=== PATIENT | female | born 1945 | race Caucasian/White ===

== ENCOUNTER 2016-09-28 18:00 | Inpatient (IN) | payer MEDICARE, MEDICAID ==
[~2016-09-28] VITALS: Ht 162.6 cm; Wt 76.4 kg
[2016-09-28 18:32] LABS: BASOPHILS % (AUTO) 0.2 % (0.0-2.0); HEMATOCRIT 28.5 % (36-46); LYMPHOCYTES % (AUTO) 6.5 % (22.0-44.0); MEAN CORPUSCULAR HGB CONC 31.4 G/dL (31.0-37.0); MEAN CORPUSCULAR VOLUME 99 fL (80-100); MONOCYTES % (AUTO) 6.8 % (2.0-9.0); NEUTROPHILS # (AUTO) 11.7 K/uL (1.8-7.7); NEUTROPHILS % (AUTO) 77.5 % (40.0-70.0); PLATELET COUNT (AUTO) 663 K/uL (150-450); RED BLOOD CELL COUNT(AUTO) 2.89 MIL/uL (4.00-5.20); RED CELL DISTRIBUTION WIDTH 15.4 % (11.5-14.5); WHITE BLOOD COUNT (AUTO) 15.1 K/uL (4.5-11.0)
[2016-09-28] MEDS ORDERED: DSS100 PO (18:38)
[2016-09-28] MEDS ORDERED: OLAN10TA3 PO (18:38)
[2016-09-28] MEDS ORDERED: CHOL200016 PO (18:38)
[2016-09-28] MEDS ORDERED: ASPI81 PO (18:38)
[2016-09-28] MEDS ORDERED: IPRNEB IH (18:38)
[2016-09-28] MEDS ORDERED: BENZ1TAB10 PO (18:38)
[2016-09-28] MEDS ORDERED: TEMO15C TP (18:38)
[2016-09-28] MEDS ORDERED: BISA5TAB12 PO (18:38)
[2016-09-28] MEDS ORDERED: GABA-531 PO (18:38)
[2016-09-28] MEDS ORDERED: FOLI1 PO (18:38)
[2016-09-28] MEDS ORDERED: ACET-2247 PO (18:38)
[2016-09-28] MEDS ORDERED: ONDA4 PO (18:38)
[2016-09-28] MEDS ORDERED: SENN-30 PO (18:38)
[2016-09-28] MEDS ORDERED: TRAZ-147 PO (18:38)
[2016-09-28] MEDS ORDERED: LEVO100 PO (18:38)
[2016-09-28] MEDS ORDERED: MUPI1OIN5 TP (18:38)
[2016-09-28 18:44] LABS: ANION GAP 4 mmol/L (8-16); CALCIUM, TOTAL 8.6 mg/dL (8.8-10.5); CARBON DIOXIDE 30 mmol/L (22-29); CHLORIDE 102 mmol/L (98-107); CREATININE 0.71 mg/dL (0.60-1.30); GLOMERULAR FILTR. RATE CALC > 60 mL/min (>60); POTASSIUM 4.3 mmol/L (3.5-5.1); SODIUM SERUM 136 mmol/L (136-145); UREA NITROGEN, BLOOD 13 mg/dL (7-18)
[2016-09-28 18:49] LABS: ALANINE AMINOTRANSFERASE 42 U/L (12-78); ALBUMIN 1.9 g/dL (3.4-5.0); ASPARTATE AMINOTRANSFERASE 26 U/L (15-37); BILIRUBIN,TOTAL 0.3 mg/dL (0.1-1.0); CREATINE KINASE, TOTAL 12 U/L (26-192); TOTAL PROTEIN, SERUM 6.4 g/dL (6.4-8.2)
[2016-09-28 18:54] LABS: TROPONIN I < 0.02 ng/mL (0.00-0.05)
[2016-09-28 18:57] LABS: B-TYPE NATRIURETIC PEPTIDE 206 pg/mL (0-100)
[2016-09-28 19:03] LABS: AMMONIA < 10 umol/L (11-32)
[2016-09-28 19:06] LABS: LACTIC ACID 0.9 mmol/L (0.4-2.0)
[2016-09-28 19:56] LABS: GLUCOSE,POINT OF CARE 88 MG/DL (70-110)
[2016-09-28] MEDS ORDERED: ALBUTEROL SULFATE 5 MG/ML 20 ML NEB SOLN [BULK] NEB ONE (20:00)
[2016-09-28] MEDS ORDERED: 0.9% SODIUM CHLORIDE 10 ML SYRINGE IVP PRN (20:00)
[2016-09-28] MEDS ORDERED: ACETAMINOPHEN 325 MG TABLET PO PRN ×2 (20:00→20:45)
[2016-09-28] MEDS ORDERED: IPRATROPIUM BROMIDE 0.5 MG/2.5 ML NEB SOLUTION NEB ONE (20:00)
[2016-09-28] MEDS ORDERED: CefTRIAXone 1 GM/DEXTROSE 50 ML IV ONE (20:00)
[2016-09-28] MEDS ORDERED: ONDANSETRON HCL 4 MG/2 ML VIAL IVP PRN (20:00)
[2016-09-28] MEDS ORDERED: ALBUTEROL SULFATE 2.5 MG/0.5 ML NEB SOLUTION NEB PRN (20:45)
[2016-09-28] MEDS ORDERED: PERMETHRIN 5% 60 GM CREAM TP ONE (20:45)
[2016-09-28] MEDS ORDERED: MAGNESIUM HYDROXIDE SUSPENSION 30 ML UDCUP PO PRN (20:45)
[2016-09-28 20:55] LABS: APPEARANCE,URINE CLEAR (CLEAR); GLUCOSE, URINE (UA) NEGATIVE (NEGATIVE); KETONES,URINE NEGATIVE (NEGATIVE); LEUKOCYTE ESTERASE ,URINE NEGATIVE (NEGATIVE); OCCULT BLOOD,URINE NEGATIVE (NEGATIVE); PH,URINE 6.5 (5.0-8.0); PROTEIN,URINE TRACE (NEGATIVE)
[2016-09-28 21:22] LABS: RBC,URINE None Seen /HPF (0-2)
[2016-09-28 21:23] LABS: WBC,URINE 0-2 /HPF (0-5)
[2016-09-28 21:24] LABS: SQUAMOUS EPITHELIAL CELL,UR Few /LPF (None Seen)
[2016-09-28 22:57] LABS: GLUCOSE,POINT OF CARE 98 MG/DL (70-110)
[2016-09-28 23:25] VITALS: BP 93/54
[2016-09-28] MEDS: DOCUSATE SODIUM 100 MG CAPSULE PO SCH (23:27)
[2016-09-28] MEDS: HEPARIN SODIUM,PORCINE 5,000 UNITS/ML VIAL SQ SCH (23:27)
[2016-09-28] MEDS: OXYGEN THERAPY IH SCH (23:28)
[2016-09-28] MEDS: ALBUTEROL SULFATE 2.5 MG/0.5 ML NEB SOLUTION NEB SCH (23:56)
[2016-09-28] MEDS: IPRATROPIUM BROMIDE 0.5 MG/2.5 ML NEB SOLUTION NEB SCH (23:56)
[2016-09-29] MEDS ORDERED: PNEUMOCOCCAL VACCINE POLYVALENT 0.5 ML VIAL [PPSV23] IM ONE (00:30)
[2016-09-29] MEDS: IPRATROPIUM BROMIDE 0.5 MG/2.5 ML NEB SOLUTION NEB SCH ×2 (03:19→07:41)
[2016-09-29] MEDS: ALBUTEROL SULFATE 2.5 MG/0.5 ML NEB SOLUTION NEB SCH ×2 (03:19→07:41)
[2016-09-29 05:44] VITALS: BP 115/67
[2016-09-29 06:39] LABS: BASOPHILS # (AUTO) 0.03 K/uL (0.00-0.20); BASOPHILS % (AUTO) 0.3 % (0.0-2.0); EOSINOPHILS # (AUTO) 1.59 K/uL (0.00-0.70); EOSINOPHILS % (AUTO) 13.16 % (1.0-6.0); HEMATOCRIT 24.6 % (36-46); HEMOGLOBIN 8.1 g/dL (12.0-16.0); LYMPHOCYTES # (AUTO) 1.1 K/uL (1.0-4.8); MEAN CORPUSCULAR HEMOGLOBIN 31.9 pg (26.0-34.0); MEAN CORPUSCULAR HGB CONC 32.7 G/dL (31.0-37.0); MEAN CORPUSCULAR VOLUME 98 fL (80-100); MONOCYTES # (AUTO) 0.9 K/uL (0.1-1.0); MONOCYTES % (AUTO) 7.1 % (2.0-9.0); NEUTROPHILS # (AUTO) 8.5 K/uL (1.8-7.7); NEUTROPHILS % (AUTO) 70.5 % (40.0-70.0); PLATELET COUNT (AUTO) 645 K/uL (150-450); RED BLOOD CELL COUNT(AUTO) 2.52 MIL/uL (4.00-5.20); RED CELL DISTRIBUTION WIDTH 15.8 % (11.5-14.5); WHITE BLOOD COUNT (AUTO) 12.1 K/uL (4.5-11.0)
[2016-09-29 06:55] LABS: ALANINE AMINOTRANSFERASE 40 U/L (12-78); ALBUMIN 1.8 g/dL (3.4-5.0); ANION GAP 3 mmol/L (8-16); ASPARTATE AMINOTRANSFERASE 25 U/L (15-37); BILIRUBIN,TOTAL 0.2 mg/dL (0.1-1.0); CALCIUM, TOTAL 8.3 mg/dL (8.8-10.5); CARBON DIOXIDE 32 mmol/L (22-29); CHLORIDE 103 mmol/L (98-107); CREATININE 0.79 mg/dL (0.60-1.30); GLOMERULAR FILTR. RATE CALC > 60 mL/min (>60); POTASSIUM 4.5 mmol/L (3.5-5.1); SODIUM SERUM 138 mmol/L (136-145); TOTAL PROTEIN, SERUM 5.8 g/dL (6.4-8.2); UREA NITROGEN, BLOOD 11 mg/dL (7-18)
[2016-09-29 07:50] VITALS: BP 101/58
[2016-09-29] MEDS: OXYGEN THERAPY IH SCH (08:00)
[2016-09-29] MEDS: PANTOPRAZOLE SODIUM 40 MG DR TABLET PO SCH (08:04)
[2016-09-29] MEDS: DOCUSATE SODIUM 100 MG CAPSULE PO SCH ×2 (08:04→20:20)
[2016-09-29] MEDS: MULTIVITAMINS WITH MINERALS, THERAPEUTIC TABLET PO SCH (08:04)
[2016-09-29] MEDS: HEPARIN SODIUM,PORCINE 5,000 UNITS/ML VIAL SQ SCH ×2 (08:04→16:15)
[2016-09-29] MEDS: ASPIRIN 81 MG CHEWABLE TABLET PO SCH (08:04)
[2016-09-29] MEDS ORDERED: FLUCONAZOLE 150 MG TABLET PO ONE (10:15)
[2016-09-29 11:52] VITALS: BP 126/74
[2016-09-29 12:13] LABS: GLUCOSE,POINT OF CARE 93 MG/DL (70-110)
[2016-09-29 15:30] VITALS: BP 108/55
[2016-09-29 20:33] VITALS: BP 112/61
[2016-09-30] VITALS (7 sets, daily range): BP systolic 95–120; BP diastolic 49–72
[2016-09-30] MEDS: HEPARIN SODIUM,PORCINE 5,000 UNITS/ML VIAL SQ SCH ×3 (00:17→16:25)
[2016-09-30 06:53] LABS: BASOPHILS % (AUTO) 0.2 % (0.0-2.0); EOSINOPHILS % (AUTO) 13.1 % (1.0-6.0); HEMATOCRIT 23.2 % (36-46); HEMOGLOBIN 7.5 g/dL (12.0-16.0); LYMPHOCYTES % (AUTO) 8.7 % (22.0-44.0); MEAN CORPUSCULAR HEMOGLOBIN 31.6 pg (26.0-34.0); MEAN CORPUSCULAR HGB CONC 32.3 G/dL (31.0-37.0); MEAN CORPUSCULAR VOLUME 98 fL (80-100); MONOCYTES # (AUTO) 1.1 K/uL (0.1-1.0); MONOCYTES % (AUTO) 9.8 % (2.0-9.0); NEUTROPHILS # (AUTO) 7.9 K/uL (1.8-7.7); NEUTROPHILS % (AUTO) 68.2 % (40.0-70.0); PLATELET COUNT (AUTO) 665 K/uL (150-450); RED BLOOD CELL COUNT(AUTO) 2.37 MIL/uL (4.00-5.20); RED CELL DISTRIBUTION WIDTH 15.1 % (11.5-14.5); WHITE BLOOD COUNT (AUTO) 11.6 K/uL (4.5-11.0)
[2016-09-30 07:02] LABS: ANION GAP 4 mmol/L (8-16); CARBON DIOXIDE 31 mmol/L (22-29); CHLORIDE 104 mmol/L (98-107); CREATININE 0.83 mg/dL (0.60-1.30); GLOMERULAR FILTR. RATE CALC > 60 mL/min (>60); POTASSIUM 4.2 mmol/L (3.5-5.1); SODIUM SERUM 139 mmol/L (136-145); UREA NITROGEN, BLOOD 7 mg/dL (7-18)
[2016-09-30] MEDS: DOCUSATE SODIUM 100 MG CAPSULE PO SCH ×2 (08:30→20:03)
[2016-09-30] MEDS: ASPIRIN 81 MG CHEWABLE TABLET PO SCH (08:30)
[2016-09-30] MEDS: PANTOPRAZOLE SODIUM 40 MG DR TABLET PO SCH (08:30)
[2016-09-30] MEDS: MULTIVITAMINS WITH MINERALS, THERAPEUTIC TABLET PO SCH (08:30)
[2016-10-01 04:32] VITALS: BP 112/52
[2016-10-01 08:06] VITALS: BP 92/72
[2016-10-01] MEDS: HEPARIN SODIUM,PORCINE 5,000 UNITS/ML VIAL SQ SCH ×2 (09:01)
[2016-10-01] MEDS: PANTOPRAZOLE SODIUM 40 MG DR TABLET PO SCH (09:01)
[2016-10-01] MEDS: MULTIVITAMINS WITH MINERALS, THERAPEUTIC TABLET PO SCH (09:01)
[2016-10-01] MEDS: DOCUSATE SODIUM 100 MG CAPSULE PO SCH ×2 (09:01→20:15)
[2016-10-01] MEDS: ASPIRIN 81 MG CHEWABLE TABLET PO SCH (09:01)
[2016-10-01 12:07] VITALS: BP 108/56
[2016-10-01] MEDS: FERROUS SULFATE 325 MG EC TABLET PO SCH ×2 (12:41→17:26)
[2016-10-01 19:38] VITALS: BP 105/58
[2016-10-01] MEDS: MUPIROCIN CALCIUM 2% 22 GM OINTMENT NASAL SCH (20:15)
[2016-10-01 23:59] VITALS: BP 125/61
[2016-10-02 04:43] VITALS: BP 117/65
[2016-10-02 04:56] VITALS: BP 106/60
[2016-10-02 07:15] LABS: BASOPHILS % (AUTO) 0.5 % (0.0-2.0); HEMATOCRIT 27.7 % (36-46); HEMOGLOBIN 8.7 g/dL (12.0-16.0); LYMPHOCYTES # (AUTO) 1.5 K/uL (1.0-4.8); LYMPHOCYTES % (AUTO) 12.4 % (22.0-44.0); MEAN CORPUSCULAR HEMOGLOBIN 30.7 pg (26.0-34.0); MEAN CORPUSCULAR HGB CONC 31.5 G/dL (31.0-37.0); MEAN CORPUSCULAR VOLUME 97 fL (80-100); MONOCYTES # (AUTO) 1.4 K/uL (0.1-1.0); MONOCYTES % (AUTO) 11.7 % (2.0-9.0); NEUTROPHILS # (AUTO) 6.3 K/uL (1.8-7.7); NEUTROPHILS % (AUTO) 53.3 % (40.0-70.0); RED BLOOD CELL COUNT(AUTO) 2.85 MIL/uL (4.00-5.20); WHITE BLOOD COUNT (AUTO) 11.8 K/uL (4.5-11.0)
[2016-10-02 07:20] LABS: EOSINOPHILS % (AUTO) 22.1 % (1.0-6.0); PLATELET COUNT (AUTO) 924 K/uL (150-450)
[2016-10-02 07:36] VITALS: BP 110/61
[2016-10-02] MEDS: FERROUS SULFATE 325 MG EC TABLET PO SCH ×2 (09:01→14:01)
[2016-10-02] MEDS: PANTOPRAZOLE SODIUM 40 MG DR TABLET PO SCH (09:01)
[2016-10-02] MEDS: ASPIRIN 81 MG CHEWABLE TABLET PO SCH (09:01)
[2016-10-02] MEDS: MUPIROCIN CALCIUM 2% 22 GM OINTMENT NASAL SCH (09:01)
[2016-10-02] MEDS: DOCUSATE SODIUM 100 MG CAPSULE PO SCH (09:01)
[2016-10-02] MEDS: MULTIVITAMINS WITH MINERALS, THERAPEUTIC TABLET PO SCH (09:01)
[2016-10-02] MEDS ORDERED: 0.9% SODIUM CHLORIDE 5 ML NEB SOLUTION NEB ONE (10:13)
[2016-10-02 12:21] VITALS: BP 108/64
== END 2016-10-02 15:38 | disposition home or self-care (01) | DRG 606 ==
LOC: EMS 18:01 → 5S 19:48 → 6N 19:48
PROVIDERS: ADMIT Internal Medicine; ATTEND Internal Medicine
DX: B86 Scabies (principal); G93.40 Encephalopathy, unspecified; E43 Unspecified severe protein-calorie malnutrition; D72.1 Eosinophilia; D63.8 Anemia in other chronic diseases classified elsewhere; F03.90 Unspecified dementia, unspecified severity, without behavioral disturbance, psychotic disturbance, mood disturbance, and anxiety; R62.7 Adult failure to thrive; L30.9 Dermatitis, unspecified; E16.2 Hypoglycemia, unspecified; E03.9 Hypothyroidism, unspecified; F20.9 Schizophrenia, unspecified; Z79.82 Long term (current) use of aspirin; I10 Essential (primary) hypertension; D75.89 Other specified diseases of blood and blood-forming organs; Z88.0 Allergy status to penicillin; Z79.899 Other long term (current) drug therapy; B37.9 Candidiasis, unspecified; Z90.49 Acquired absence of other specified parts of digestive tract; Z68.28 Body mass index [BMI] 28.0-28.9, adult
CPT/HCPCS: 51702; 70450; 82962; 83605; 87040; 87081; 87086; 87106; 93005; 94640; 96365; 96375; 97116; 97162; 97530; 99285; J0696; J1644; J2405

== ENCOUNTER → 2016-10-11 | Outpatient (CLI) | payer MEDICARE, MEDICAID ==
[~2016-10-11] MED LIST: ACET-2247 PO; ASPI81 PO; CHOL200016 PO; DSS100 PO; IPRNEB IH; LEVO100 PO; MUPI1OIN5 TP; SENN-30 PO; TEMO15C TP; TRAZ-147 PO
== END | disposition home or self-care (01) ==
LOC: RADMN 08:25
PROVIDERS: ATTEND Legal Medicine
DX: J18.9 Pneumonia, unspecified organism (principal); R91.8 Other nonspecific abnormal finding of lung field; J98.4 Other disorders of lung; J90 Pleural effusion, not elsewhere classified; J98.11 Atelectasis; M53.84 Other specified dorsopathies, thoracic region; I70.0 Atherosclerosis of aorta; I25.10 Atherosclerotic heart disease of native coronary artery without angina pectoris; I28.8 Other diseases of pulmonary vessels; K46.9 Unspecified abdominal hernia without obstruction or gangrene
CPT/HCPCS: 71250

== ENCOUNTER → 2016-10-19 | Outpatient (CLI) | payer MEDICARE, MEDICAID | END | disposition home or self-care (01) | LOC: RADMN 12:54 | PROVIDERS: ATTEND Legal Medicine | DX: J18.9 Pneumonia, unspecified organism (principal); K44.9 Diaphragmatic hernia without obstruction or gangrene; J90 Pleural effusion, not elsewhere classified; J18.1 Lobar pneumonia, unspecified organism; J47.9 Bronchiectasis, uncomplicated; J98.4 Other disorders of lung; I70.0 Atherosclerosis of aorta; I28.8 Other diseases of pulmonary vessels | CPT/HCPCS: 71250 ==

== ENCOUNTER → 2016-11-06 | Outpatient (CLI) | payer MEDICARE, MEDICAID | END | disposition home or self-care (01) | LOC: RADMN 09:21 | PROVIDERS: ATTEND Legal Medicine | DX: K44.9 Diaphragmatic hernia without obstruction or gangrene (principal); R19.09 Other intra-abdominal and pelvic swelling, mass and lump; M43.16 Spondylolisthesis, lumbar region; M47.816 Spondylosis without myelopathy or radiculopathy, lumbar region | CPT/HCPCS: 74176 ==

== ENCOUNTER → 2016-12-20 | Outpatient (CLI) | payer OTHER | END | disposition home or self-care (01) | LOC: RADMN 08:35 | PROVIDERS: ATTEND Legal Medicine | DX: R13.10 Dysphagia, unspecified (principal) | CPT/HCPCS: 74230; 92611 ==

== ENCOUNTER → 2016-12-28 | Outpatient (CLI) | payer MEDICARE, MEDICAID ==
[~2016-12-28] MED LIST changes: +GADOBUTROL 1 MMOL/ML 10 ML VIAL IVP ONE
== END | disposition home or self-care (01) ==
LOC: RADMN 09:19
PROVIDERS: ATTEND Legal Medicine
DX: M19.071 Primary osteoarthritis, right ankle and foot (principal); M20.11 Hallux valgus (acquired), right foot; M62.571 Muscle wasting and atrophy, not elsewhere classified, right ankle and foot; R60.0 Localized edema
CPT/HCPCS: 73720; A9585